=== PATIENT | female | born 1985 | race African-American/Black ===

== ENCOUNTER → 2020-11-08 | Outpatient (CLI) | payer OTHER | END | disposition home or self-care (01) | LOC: PRENATAL 14:00 | PROVIDERS: ATTEND Obstetrics & Gynecology Maternal & Fetal Medicine | DX: O35.0XX1 Maternal care for (suspected) central nervous system malformation in fetus, fetus 1 (principal); O35.3XX1 Maternal care for (suspected) damage to fetus from viral disease in mother, fetus 1; O98.513 Other viral diseases complicating pregnancy, third trimester; Z36.89 Encounter for other specified antenatal screening; Z3A.31 31 weeks gestation of pregnancy ==

== ENCOUNTER 2021-10-30 18:30 | Emergency (ER) | payer OTHER ==
[~2021-10-30] VITALS: Ht 175.3 cm; Wt 86.2 kg
[2021-10-30] MEDS ORDERED: NASACORT16.9 ML NASAL (21:21)
[2021-10-30] MEDS ORDERED: ZITHROMAX500 MG PO (21:21)
[2021-10-30] MEDS ORDERED: ZYRTEC10 M3 PO (21:21)
[2021-10-30] MEDS ORDERED: SINUS RINSE ST1 EACH NASAL (21:21)
== END 2021-10-30 21:42 | disposition home or self-care (01) ==
LOC: ER 18:30
DX: J06.9 Acute upper respiratory infection, unspecified (principal); R09.81 Nasal congestion; Z20.822 Contact with and (suspected) exposure to COVID-19; Z91.013 Allergy to seafood

== ENCOUNTER → 2022-06-05 | Emergency (ER) | payer OTHER ==
[~2022-06-05] VITALS: Ht 175.3 cm; Wt 90.7 kg
[~2022-06-05] MED LIST: NASACORT16.9 ML NASAL; SINUS RINSE ST1 EACH NASAL; ZITHROMAX500 MG PO; ZYRTEC10 M3 PO
== END | disposition home or self-care (01) ==
LOC: ER 11:24
DX: U07.1 COVID-19 (principal)

== ENCOUNTER 2022-06-14 18:37 | Emergency (ER) | payer OTHER ==
[~2022-06-14] VITALS: Ht 175.3 cm; Wt 90.7 kg
== END 2022-06-14 20:56 | disposition home or self-care (01) ==
LOC: ER 18:37
DX: S93.402A Sprain of unspecified ligament of left ankle, initial encounter (principal); W19.XXXA Unspecified fall, initial encounter; Y93.9 Activity, unspecified; Y92.9 Unspecified place or not applicable; Y99.9 Unspecified external cause status

== ENCOUNTER 2023-10-05 13:13 | Outpatient (CLI) | payer OTHER | END 2023-10-05 13:19 | disposition home or self-care (01) | LOC: PRENATAL 13:13 | PROVIDERS: ATTEND Obstetrics & Gynecology Maternal & Fetal Medicine | DX: O36.80X0 Pregnancy with inconclusive fetal viability, not applicable or unspecified (principal); Z36.82 Encounter for antenatal screening for nuchal translucency; O09.529 Supervision of elderly multigravida, unspecified trimester; Z14.8 Genetic carrier of other disease; Z3A.13 13 weeks gestation of pregnancy ==

== ENCOUNTER 2023-11-02 11:44 | Emergency (ER) | payer OTHER ==
[~2023-11-02] VITALS: Ht 175.3 cm; Wt 91.2 kg
[2023-11-02 14:06] LABS: HEMATOCRIT 36.5 % (36.0-45.00); HEMOGLOBIN 12.8 g/dL (12.0-15.00); MEAN CELL VOLUME 85.6 fL (80.00-100.00); MEAN CORPUSCULAR HEMOGLOBIN 29.9 pg (27.00-32.0); PLATELET COUNT 255 K/uL (150-450); RED BLOOD COUNT 4.27 M/uL (4.00-6.00); RED CELL DISTRIBUTION WIDTH 13.9 % (11.5-14.5)
[2023-11-02 14:43] LABS: PH,URINE 5.5 (5.0-8.0); URINE APPEARANCE Clear; URINE BILIRRUBIN Negative (NEGATIVE); URINE BLOOD Moderate; URINE COLOR Yellow; URINE GLUCOSE Negative (NEGATIVE); URINE LEUKOCYTE Trace; URINE NITRATE Negative; URINE PROTEIN Negative (NEGATIVE)
[2023-11-02 14:47] LABS: URINE BACTERIA 95.7 uL (0.0-1933); URINE EPITHELIAL CELLS 23.9 uL (0.0-38.8); URINE RBC 39.6 uL (0.0-20.8); URINE WBC 14.9 uL (0.0-23.2)
[2023-11-02 15:20] LABS: URINE CRYSTALS FEW /HPF; URINE MUCUS MODERATE
[2023-11-02 15:21] LABS: URINE YEAST FEW /hpf
== END 2023-11-02 16:36 | disposition home or self-care (01) ==
LOC: ER 11:45
PROVIDERS: General Practice
DX: O26.892 Other specified pregnancy related conditions, second trimester (principal); R10.2 Pelvic and perineal pain; Z3A.17 17 weeks gestation of pregnancy; Z91.013 Allergy to seafood

== ENCOUNTER 2024-02-24 15:34 | Outpatient (CLI) | payer OTHER | END 2024-02-24 15:35 | disposition home or self-care (01) | LOC: PRENATAL 15:34 | PROVIDERS: ATTEND Obstetrics & Gynecology Maternal & Fetal Medicine | DX: O26.843 Uterine size-date discrepancy, third trimester (principal); O36.8130 Decreased fetal movements, third trimester, not applicable or unspecified; O09.523 Supervision of elderly multigravida, third trimester; Z3A.33 33 weeks gestation of pregnancy ==

== ENCOUNTER 2024-03-16 18:09 | Inpatient (IN) | payer OTHER ==
[~2024-03-16] VITALS: Ht 175.3 cm; Wt 95.3 kg
[2024-03-16 16:35] VITALS: BP 110/74
[2024-03-16 18:54] LABS: PH,URINE 5.5 (5.0-8.0); URINE APPEARANCE Turbid; URINE BILIRRUBIN Negative (NEGATIVE); URINE BLOOD Moderate; URINE COLOR Yellow; URINE GLUCOSE Negative (NEGATIVE); URINE KETONE Trace (NEGATIVE); URINE LEUKOCYTE Large; URINE NITRATE Negative; URINE PROTEIN 30 (NEGATIVE)
[2024-03-16 18:55] LABS: HEMATOCRIT 35.6 % (36.0-45.00); HEMOGLOBIN 12.3 g/dL (12.0-15.00); MEAN CELL VOLUME 84.9 fL (80.00-100.00); MEAN CORPUSCULAR HEMOGLOBIN 29.4 pg (27.00-32.0); MEAN CORPUSCULAR HGB CONC 34.6 g/dl (32.0-36.0); PLATELET COUNT 248 K/uL (150-450); RED BLOOD COUNT 4.19 M/uL (4.00-6.00); RED CELL DISTRIBUTION WIDTH 13.2 % (11.5-14.5)
[2024-03-16 18:59] LABS: URINE CAST 1.45 uL (0.0-1.40); URINE RBC 28.9 uL (0.0-20.8); URINE WBC 2653.8 uL (0.0-23.2)
[2024-03-16 19:19] LABS: URINE BACTERIA > 9821.5 uL (0.0-1933); URINE EPITHELIAL CELLS > 201.7 uL (0.0-38.8)
[2024-03-16 19:20] LABS: URINE CRYSTALS MODERATE /HPF; URINE YEAST FEW /hpf
[2024-03-16 19:45] VITALS: BP 117/70
[2024-03-16] MEDS ORDERED: CEFAZOLIN SODIUM 1,000 MG VIAL ONE (22:24)
[2024-03-16] MEDS ORDERED: CEFAZOLIN SODIUM 1,000 MG VIAL IV ONE (22:45)
[2024-03-16 23:46] VITALS: BP 109/74
[2024-03-17] VITALS (8 sets, daily range): BP systolic 102–114; BP diastolic 67–77; O2SAT 100
[2024-03-17] MEDS ORDERED: CEFAZOLIN SODIUM 1,000 MG VIAL IV SCH (05:00)
[2024-03-17] MEDS ORDERED: RINGERS SOLUTION,LACTATED 1,000 ML IV SCH (07:30)
[2024-03-17] MEDS ORDERED: PRENATAL TABLE1 EAC1 PO (13:26)
[2024-03-17] MEDS ORDERED: CITRIC ACID/SODIUM CITRATE 30 ML BLIST.PACK PO ONE (21:15)
[2024-03-17] MEDS ORDERED: FAMOTIDINE/PF 20 MG/2 ML VIAL ONE (22:13)
[2024-03-17] MEDS ORDERED: FAMOTIDINE/PF 20 MG/2 ML VIAL IV PUSH ONE (23:00)
[2024-03-18 03:45] VITALS: BP 112/72
[2024-03-18 07:21] VITALS: BP 110/70
[2024-03-18 11:25] VITALS: BP 117/80
[2024-03-18 16:00] VITALS: BP 126/82
[2024-03-18] MEDS ORDERED: FAMOTIDINE/PF 20 MG/2 ML VIAL IV SCH (17:00)
[2024-03-19] VITALS: BP 91/63
[2024-03-19 08:12] VITALS: BP 114/83
[2024-03-19 16:00] VITALS: BP 106/75
== END 2024-03-19 17:13 | disposition home or self-care (01) | DRG 833 ==
LOC: OBS/DEL 18:09 → LDR 03-17 13:14 → OBS/DEL 03-17 13:14 → OB/GYN 03-17 13:14
PROVIDERS: ADMIT Obstetrics & Gynecology; ATTEND Obstetrics & Gynecology
PROC: 4A1HXCZ Monitoring of Products of Conception, Cardiac Rate, External Approach (ICD-10-PCS; principal; 2024-03-17)
DX: O23.43 Unspecified infection of urinary tract in pregnancy, third trimester (principal); Z3A.37 37 weeks gestation of pregnancy; Z20.822 Contact with and (suspected) exposure to COVID-19

== ENCOUNTER 2024-04-03 06:02 | Inpatient (IN) | payer OTHER ==
[~2024-04-03] VITALS: Ht 175.3 cm; Wt 98.9 kg
[2024-04-03] VITALS (10 sets, daily range): BP systolic 107–143; BP diastolic 68–84
[~2024-04-03 06:02] MED LIST changes: +PRENATAL TABLE1 EAC1 PO
[2024-04-03] MEDS ORDERED: RINGERS SOLUTION,LACTATED 1,000 ML IV SCH (06:15)
[2024-04-03 07:27] LABS: HEMATOCRIT 36.5 % (36.0-45.00); HEMOGLOBIN 12.8 g/dL (12.0-15.00); MEAN CELL VOLUME 85.4 fL (80.00-100.00); MEAN CORPUSCULAR HEMOGLOBIN 29.9 pg (27.00-32.0); PLATELET COUNT 247 K/uL (150-450); RED BLOOD COUNT 4.27 M/uL (4.00-6.00)
[2024-04-03 07:28] LABS: PH,URINE 5.5 (5.0-8.0); URINE APPEARANCE Clear; URINE BILIRRUBIN Negative (NEGATIVE); URINE BLOOD Negative; URINE COLOR Yellow; URINE GLUCOSE Negative (NEGATIVE); URINE KETONE Negative (NEGATIVE); URINE LEUKOCYTE Moderate; URINE NITRATE Negative; URINE PROTEIN 30 (NEGATIVE); URINE UROBILINOGEN 0.2 E.U./dl
[2024-04-03] MEDS ORDERED: MISOPROSTOL 25 MCG/4 ML GEL.W.APPL ONE (07:36)
[2024-04-03 07:45] LABS: URINE BACTERIA 6246.8 uL (0.0-1933); URINE EPITHELIAL CELLS 137.5 uL (0.0-38.8); URINE WBC 190.3 uL (0.0-23.2)
[2024-04-03 08:01] LABS: URINE CAST 0.76 uL (0.0-1.40)
[2024-04-03 08:02] LABS: INR < 0.93; PARTIAL THROMBOPLASTIN TIME 27.6 SECONDS (22.0-34.0); PROTHROMBIN TIME 9.8 SECONDS (9.0-11.5)
[2024-04-03 08:02] LABS: URINE YEAST NEGATIVE /hpf
[2024-04-03 08:04] LABS: ALBUMIN 2.5 gm/dL (3.4-5.0); BILIRUBIN TOTAL 0.36 mg/dL (0.3-1.2); CALCIUM 8.8 mg/dL (8.5-10.1); CREATININE SERUM 0.66 mg/dL (0.55-1.02); GFR 100.77; GLOBULINA 4.1 G/DL (2.4-3.5); POTASSIUM 4.05 mEq/L (3.5-5.1); TOTAL PROTEIN 6.6 gm/dL (6.4-8.2)
[2024-04-03] MEDS ORDERED: ERYTHROMYCIN BASE OPHT 1GM EACH TUBE OP ONE ×2 (10:05→13:30)
[2024-04-03] MEDS ORDERED: LIDOCAINE HCL 1% 10ML VIAL ONE (10:05)
[2024-04-03] MEDS ORDERED: OXYTOCIN 10 UNITS/ML VIAL ONE (10:05)
[2024-04-03] MEDS ORDERED: CHLORHEXIDINE GLUCONATE 120 ML BOTTLE TOP ONE (10:05)
[2024-04-03] MEDS ORDERED: OXYTOCIN 20 UNITS/1000ML RL PIGGYBAG IV ONE (10:05)
[2024-04-03] MEDS ORDERED: MISOPROSTOL 25 MCG/4 ML GEL.W.APPL VAG STA (10:27)
[2024-04-03] MEDS ORDERED: OXYTOCIN 500 ML IV SCH (11:30)
[2024-04-03] MEDS ORDERED: MORPHINE SULFATE 4 MG/ML CARTRIDGE IV ONE (12:15)
[2024-04-03] MEDS ORDERED: IBUprofen 400 MG TABLET PO PRN (13:15)
[2024-04-03] MEDS ORDERED: OXYTOCIN 10 UNITS/ML VIAL IM STA (13:15)
[2024-04-03] MEDS ORDERED: CHLORHEXIDINE GLUCONATE 120 ML BOTTLE TOP SCH (13:15)
[2024-04-03] MEDS ORDERED: OXYTOCIN 1,000 ML IV SCH (13:15)
[2024-04-03] MEDS ORDERED: LIDOCAINE HCL 1% 10ML VIAL IJ ONE (13:30)
[2024-04-03 18:31] LABS: HEMATOCRIT 36.2 % (36.0-45.00); HEMOGLOBIN 12.5 g/dL (12.0-15.00); MEAN CELL VOLUME 85.3 fL (80.00-100.00); MEAN CORPUSCULAR HEMOGLOBIN 29.6 pg (27.00-32.0); MEAN CORPUSCULAR HGB CONC 34.6 g/dl (32.0-36.0); PLATELET COUNT 228 K/uL (150-450); RED BLOOD COUNT 4.24 M/uL (4.00-6.00)
[2024-04-03] MEDS ORDERED: GUAIFENESIN 200 MG/10 ML BLIST.PACK PO SCH (21:00)
[2024-04-04] VITALS: BP 108/76
[2024-04-04 08:00] VITALS: BP 117/81
[2024-04-04 19:30] VITALS: BP 122/84
[2024-04-05] VITALS: BP 128/76
[2024-04-05 08:00] VITALS: BP 132/87
== END 2024-04-05 14:21 | disposition home or self-care (01) | DRG 807 ==
LOC: LDR 06:02 → OB/GYN 11:14
PROVIDERS: ADMIT Obstetrics & Gynecology; ATTEND Obstetrics & Gynecology
PROC: 10E0XZZ Delivery of Products of Conception, External Approach (ICD-10-PCS; principal; 2024-04-03)
PROC: 0KQM0ZZ Repair Perineum Muscle, Open Approach (ICD-10-PCS; 2024-04-03)
PROC: 3E033VJ Introduction of Other Hormone into Peripheral Vein, Percutaneous Approach (ICD-10-PCS; 2024-04-03)
PROC: 3E0P7VZ Introduction of Hormone into Female Reproductive, Via Natural or Artificial Opening (ICD-10-PCS; 2024-04-03)
PROC: 4A1HXCZ Monitoring of Products of Conception, Cardiac Rate, External Approach (ICD-10-PCS; 2024-04-03)
DX: O70.1 Second degree perineal laceration during delivery (principal); Z37.0 Single live birth; Z3A.39 39 weeks gestation of pregnancy; Z20.822 Contact with and (suspected) exposure to COVID-19

== ENCOUNTER 2024-04-09 13:39 | Emergency (ER) | payer OTHER ==
[~2024-04-09] VITALS: Ht 167.6 cm; Wt 86.2 kg
[2024-04-09 17:10] LABS: HEMATOCRIT 35.7 % (36.0-45.00); HEMOGLOBIN 12.4 g/dL (12.0-15.00); MEAN CELL VOLUME 85.1 fL (80.00-100.00); MEAN CORPUSCULAR HEMOGLOBIN 29.5 pg (27.00-32.0); MEAN CORPUSCULAR HGB CONC 34.7 g/dl (32.0-36.0); PLATELET COUNT 340 K/uL (150-450); RED CELL DISTRIBUTION WIDTH 13.2 % (11.5-14.5)
[2024-04-09] MEDS ORDERED: EMERGEN-C 500500 MG PO (18:41)
[2024-04-09] MEDS ORDERED: TYLENOL325 MG PO (18:42)
== END 2024-04-09 18:57 | disposition home or self-care (01) ==
LOC: ER 13:41
DX: B34.9 Viral infection, unspecified (principal); R53.81 Other malaise; Z20.822 Contact with and (suspected) exposure to COVID-19; Z91.013 Allergy to seafood